=== PATIENT | female | born 1960 | race African-American/Black ===

== ENCOUNTER 2022-02-16 05:43 | Day surgery (SDC) | payer OTHER ==
[2022-02-15 17:24] LABS: COVID AG,FIA SOURCE NASAL SWAB
[~2022-02-16] VITALS: Ht 165.1 cm; Wt 62.6 kg
[~2022-02-16 05:43] MED LIST: METF-1211 PO; RINGERS SOLUTION,LACTATED 500 ML IV ONE
[2022-02-16] MEDS ORDERED: TETRACAINE HCL/PF 0.5% 4 ML OPHTHALMIC SOLUTION OD ONE (05:44)
[2022-02-16] MEDS ORDERED: EPINEPHrine 1:1,000 [1 MG/ML] VIAL IM ONE (05:44)
[2022-02-16] MEDS ORDERED: BALANCED SALT 15 ML OPHTHALMIC IRRIG.SOLN OD ONE (05:44)
[2022-02-16] MEDS ORDERED: POVIDONE-IODINE 5% 30 ML OPHTHALMIC SOLUTION OD ONE (05:44)
[2022-02-16] MEDS ORDERED: HYALURONATE SOD 8.5MG/0.85ML 10 MG/ML SYRINGE IO ONE ×2 (05:44→06:30)
[2022-02-16] MEDS ORDERED: LIDOCAINE/PF 1% 2 ML VIAL IM ONE (05:44)
[2022-02-16] MEDS ORDERED: HYALURONATE SOD/CHONDROITIN SOD 0.5 ML VIAL IO ONE (05:44)
[2022-02-16] MEDS ORDERED: RINGERS SOLUTION,LACTATED 500 ML IV ONE (06:07)
[2022-02-16] MEDS ORDERED: KETOROLAC TROMETHAMINE 0.5% 5 ML OPHTHALMIC SOLUTION ONE (06:08)
[2022-02-16] MEDS ORDERED: PHENYLEPHRINE HCL 2.5% 2 ML OPHTHALMIC SOLUTION ONE (06:08)
[2022-02-16] MEDS ORDERED: TETRACAINE HCL/PF 0.5% 4 ML OPHTHALMIC SOLUTION ONE (06:08)
[2022-02-16] MEDS ORDERED: CYCLOPENTOLATE HCL 1% 2 ML OPHTHALMIC SOLUTION ONE (06:08)
[2022-02-16] MEDS ORDERED: MOXIFLOXACIN HCL 0.5% 3 ML OPHTHALMIC SOLUTION ONE (06:08)
[2022-02-16] MEDS ORDERED: TROPICAMIDE 1% 2 ML OPHTHALMIC SOLUTION ONE (06:08)
[2022-02-16] MEDS: MOXIFLOXACIN HCL 0.5% 3 ML OPHTHALMIC SOLUTION OD SCH ×3 (06:34→06:52)
[2022-02-16] MEDS: PHENYLEPHRINE HCL 2.5% 2 ML OPHTHALMIC SOLUTION OD SCH ×3 (06:34→06:52)
[2022-02-16] MEDS: TROPICAMIDE 1% 2 ML OPHTHALMIC SOLUTION OD SCH ×3 (06:34→06:52)
[2022-02-16] MEDS: CYCLOPENTOLATE HCL 1% 2 ML OPHTHALMIC SOLUTION OD SCH ×3 (06:34→06:52)
[2022-02-16] MEDS: TETRACAINE HCL/PF 0.5% 4 ML OPHTHALMIC SOLUTION OD SCH ×3 (06:35→06:52)
[2022-02-16] MEDS: KETOROLAC TROMETHAMINE 0.5% 5 ML OPHTHALMIC SOLUTION OD SCH ×3 (06:35→06:51)
[2022-02-16 07:16] LABS: GLUCOMETER DEV NAME(LOC) SDS.; GLUCOSE,POINT OF CARE 194 MG/DL (70-110)
== END 2022-02-16 09:10 | disposition home or self-care (01) ==
LOC: SURGERY 05:43
PROVIDERS: ATTEND Ophthalmology
DX: E11.36 Type 2 diabetes mellitus with diabetic cataract (principal); H25.11 Age-related nuclear cataract, right eye; E11.39 Type 2 diabetes mellitus with other diabetic ophthalmic complication; H42 Glaucoma in diseases classified elsewhere; Z79.899 Other long term (current) drug therapy; Z98.890 Other specified postprocedural states; Z20.822 Contact with and (suspected) exposure to COVID-19
CPT/HCPCS: 93005; 87426; 65820; 66984; 82962; C9803; J0171; J3490; Q9967; J7120; V2632